=== PATIENT | female | born 2005 | race Hispanic/Latino ===

== ENCOUNTER 2024-10-28 18:50 | Emergency (ER) | payer OTHER ==
[~2024-10-28] VITALS: Ht 160 cm; Wt 75.3 kg
[2024-10-28 19:10] VITALS: PULSE 60; RESP 18; TEMP 98.1
[2024-10-28 20:02] VITALS: BP 108/64; PULSE 60; RESP 18; TEMP 98.1; O2SAT 99
== END 2024-10-28 20:08 | disposition home or self-care (01) ==
LOC: FSED 19:29
DX: S01.81XA Laceration without foreign body of other part of head, initial encounter (principal); W22.8XXA Striking against or struck by other objects, initial encounter; Y93.72 Activity, wrestling; Y92.89 Other specified places as the place of occurrence of the external cause; Z85.89 Personal history of malignant neoplasm of other organs and systems
CPT/HCPCS: 99283

== ENCOUNTER 2024-11-15 18:33 | Emergency (ER) | payer OTHER | END 2024-11-15 18:51 | disposition left against medical advice (07) | LOC: FSED 18:41 | DX: T14.90XA Injury, unspecified, initial encounter (principal) ==